=== PATIENT | male | born 1970 | race African-American/Black ===

== ENCOUNTER 2016-11-28 03:12 | Inpatient (IN) | payer MEDICAID, OTHER ==
[~2016-11-28] VITALS: Ht 180.3 cm; Wt 74.5 kg
[~2016-11-28 03:12] MED LIST: AMLO-511; NIFE10CA PO; NORCO; VICOT
[2016-11-28] MEDS ORDERED: LORazepam 2 MG/ML VIAL IM ONE ×2 (03:30→04:45)
[2016-11-28] MEDS ORDERED: DiphenhydrAMINE HCL 50 MG/ML VIAL IM ONE ×2 (03:30→04:45)
[2016-11-28] MEDS ORDERED: HALOPERIDOL LACTATE 5 MG/ML VIAL IM ONE ×2 (03:30→04:45)
[2016-11-28 04:26] LABS: BASOPHILS # (AUTO) 0.05 K/uL (0.00-0.20); BASOPHILS % (AUTO) 0.8 % (0.0-2.0); EOSINOPHILS # (AUTO) 0.05 K/uL (0.00-0.70); EOSINOPHILS % (AUTO) 0.81 % (1.0-6.0); HEMATOCRIT 36.7 % (41-53); HEMOGLOBIN 12.3 g/dL (13.5-17.5); LYMPHOCYTES # (AUTO) 2.5 K/uL (1.0-4.8); LYMPHOCYTES % (AUTO) 38.1 % (22.0-44.0); MEAN CORPUSCULAR HEMOGLOBIN 30.7 pg (26.0-34.0); MEAN CORPUSCULAR HGB CONC 33.6 G/dL (31.0-37.0); MEAN CORPUSCULAR VOLUME 91 fL (80-100); MONOCYTES # (AUTO) 0.7 K/uL (0.1-1.0); MONOCYTES % (AUTO) 11.1 % (2.0-9.0); NEUTROPHILS # (AUTO) 3.2 K/uL (1.8-7.7); NEUTROPHILS % (AUTO) 49.2 % (40.0-70.0); PLATELET COUNT (AUTO) 346 K/uL (150-450); RED BLOOD CELL COUNT(AUTO) 4.01 MIL/uL (4.50-5.90); RED CELL DISTRIBUTION WIDTH 16.1 % (11.5-14.5); WHITE BLOOD COUNT (AUTO) 6.6 K/uL (4.5-11.0)
[2016-11-28 04:33] LABS: ANION GAP 13 mmol/L (8-16); CALCIUM, TOTAL 8.5 mg/dL (8.8-10.5); CARBON DIOXIDE 24 mmol/L (22-29); CHLORIDE 107 mmol/L (98-107); CREATININE 0.98 mg/dL (0.60-1.30); GLOMERULAR FILTR. RATE CALC > 60 mL/min (>60); POTASSIUM 3.8 mmol/L (3.5-5.1); SODIUM SERUM 144 mmol/L (136-145); UREA NITROGEN, BLOOD 22 mg/dL (7-18)
[2016-11-28 04:39] LABS: ALANINE AMINOTRANSFERASE 35 U/L (12-78); ALBUMIN 3.5 g/dL (3.4-5.0); ASPARTATE AMINOTRANSFERASE 35 U/L (15-37); BILIRUBIN,TOTAL 0.1 mg/dL (0.1-1.0); TOTAL PROTEIN, SERUM 7.7 g/dL (6.4-8.2)
[2016-11-28] MEDS ORDERED: OLANZapine 5 MG RAPDIS TABLET PO PRN (05:30)
[2016-11-28] MEDS ORDERED: ZOLPIDEM TARTRATE 10 MG TABLET PO PRN (05:30)
[2016-11-28] MEDS ORDERED: LORazepam 2 MG TABLET PO PRN (05:30)
[2016-11-28 05:46] LABS: APPEARANCE,URINE CLEAR (CLEAR); GLUCOSE, URINE (UA) NEGATIVE (NEGATIVE); KETONES,URINE NEGATIVE (NEGATIVE); LEUKOCYTE ESTERASE ,URINE SMALL (NEGATIVE); OCCULT BLOOD,URINE NEGATIVE (NEGATIVE); PH,URINE 5.5 (5.0-8.0); PROTEIN,URINE NEGATIVE (NEGATIVE)
[2016-11-28 05:48] LABS: ADD UA MICROSCOPIC YES
[2016-11-28 06:01] LABS: RBC,URINE 0-2 /HPF (0-2); SQUAMOUS EPITHELIAL CELL,UR Few /LPF (None Seen)
[2016-11-28 10:44] VITALS: BP 150/91
[2016-11-28] MEDS ORDERED: AMLO-512 PO (10:54)
[2016-11-28] MEDS ORDERED: INFLUENZA VIRUS VACCINE QVS 2016-17 (3YR+)/PF 60 MCG/0.5 ML SYRINGE IM ONE (11:00)
[2016-11-28] MEDS ORDERED: GuaiFENesin/D-METHORPHAN [SUGAR-FREE] 200-20MG/10 ML SYRUP UDCUP PO PRN (11:45)
[2016-11-28] MEDS ORDERED: PROMETHAZINE HCL 25 MG TABLET PO PRN (11:45)
[2016-11-28] MEDS ORDERED: MAG HYDROX/AL HYDROX/SIMETH ES 30 ML SUSPENSION UDCUP PO PRN (11:45)
[2016-11-28] MEDS ORDERED: TUBERCULIN, PURIFIED PROTEIN DERIVATIVE 5 TU/0.1 ML SYG ID ONE (11:45)
[2016-11-28] MEDS ORDERED: LOPERAMIDE HCL 2 MG CAPSULE PO PRN (11:45)
[2016-11-28] MEDS ORDERED: HydrOXYzine PAMOATE 50 MG CAPSULE PO PRN (11:45)
[2016-11-28] MEDS ORDERED: ACETAMINOPHEN 325 MG TABLET PO PRN (11:45)
[2016-11-28] MEDS ORDERED: MAGNESIUM HYDROXIDE SUSPENSION 30 ML UDCUP PO PRN (11:45)
[2016-11-28 12:30] VITALS: BP 126/88
[2016-11-28] MEDS ORDERED: DIAZEPAM 10 MG TABLET PO PRN (12:30)
[2016-11-28 13:30] VITALS: BP 132/71
[2016-11-28] MEDS ORDERED: QUEtiapine FUMARATE 100 MG TABLET PO PRN (14:15)
[2016-11-28 15:14] VITALS: BP 124/65
[2016-11-28 16:00] VITALS: BP 145/97
[2016-11-28 16:46] VITALS: BP 145/97
[2016-11-28] MEDS: THIAMINE HCL 100 MG TABLET PO SCH (17:00)
[2016-11-28] MEDS: DIVALPROEX SODIUM 500 MG ER TABLET PO SCH (20:08)
[2016-11-28] MEDS ORDERED: QUEtiapine FUMARATE 200 MG TABLET PO SCH (21:00)
[2016-11-28] MEDS ORDERED: OLANZapine 5 MG RAPDIS TABLET PO SCH (21:00)
[2016-11-29] VITALS (7 sets, daily range): BP systolic 122–147; BP diastolic 68–106
[2016-11-29] MEDS ORDERED: DIAZEPAM 10 MG TABLET PO PRN (07:00)
[2016-11-29] MEDS ORDERED: CloNIDine HCL 0.1 MG TABLET PO PRN (08:45)
[2016-11-29] MEDS: FOLIC ACID 1 MG TABLET PO SCH (09:00)
[2016-11-29] MEDS: NALTREXONE HCL 50 MG TABLET PO SCH (09:00)
[2016-11-29] MEDS: THIAMINE HCL 100 MG TABLET PO SCH ×2 (09:00→16:52)
[2016-11-29] MEDS: DIAZEPAM 10 MG TABLET PO SCH ×4 (09:00→20:45)
[2016-11-29] MEDS: MULTIVITAMINS WITH MINERALS, THERAPEUTIC TABLET PO SCH (09:58)
[2016-11-29] MEDS: AmLODIPine BESYLATE 10 MG TABLET PO SCH (09:58)
[2016-11-29] MEDS: QUEtiapine FUMARATE 300 MG TABLET PO SCH (20:46)
[2016-11-29] MEDS: DIVALPROEX SODIUM 500 MG ER TABLET PO SCH (20:46)
[2016-11-29] MEDS ORDERED: QUEtiapine FUMARATE 200 MG TABLET PO SCH (21:00)
[2016-11-30 01:12] VITALS: BP 122/78
[2016-11-30 06:06] VITALS: BP 122/78
[2016-11-30] MEDS: NALTREXONE HCL 50 MG TABLET PO SCH (09:00)
[2016-11-30] MEDS: THIAMINE HCL 100 MG TABLET PO SCH ×2 (09:59→16:43)
[2016-11-30] MEDS: MULTIVITAMINS WITH MINERALS, THERAPEUTIC TABLET PO SCH (09:59)
[2016-11-30] MEDS: DIAZEPAM 10 MG TABLET PO SCH ×4 (09:59→20:40)
[2016-11-30] MEDS: FOLIC ACID 1 MG TABLET PO SCH (09:59)
[2016-11-30] MEDS: AmLODIPine BESYLATE 10 MG TABLET PO SCH (09:59)
[2016-11-30 11:00] VITALS: BP 154/99
[2016-11-30] MEDS ORDERED: NALT50 PO (13:51)
[2016-11-30] MEDS ORDERED: DIVA500T52 PO (13:51)
[2016-11-30] MEDS ORDERED: QUET300T18 PO (13:51)
[2016-11-30 16:18] VITALS: BP 141/89
[2016-11-30] MEDS: QUEtiapine FUMARATE 300 MG TABLET PO SCH (20:39)
[2016-11-30] MEDS: DIVALPROEX SODIUM 500 MG ER TABLET PO SCH (20:39)
[2016-12-01 06:54] VITALS: BP 135/75
[2016-12-01 06:55] VITALS: BP 135/75
[2016-12-01] MEDS ORDERED: DIAZEPAM 5 MG TABLET PO PRN (07:00)
[2016-12-01 08:13] VITALS: BP 147/91
[2016-12-01] MEDS: NALTREXONE HCL 50 MG TABLET PO SCH (08:34)
[2016-12-01] MEDS: MULTIVITAMINS WITH MINERALS, THERAPEUTIC TABLET PO SCH (08:34)
[2016-12-01] MEDS: AmLODIPine BESYLATE 10 MG TABLET PO SCH (08:34)
[2016-12-01] MEDS: THIAMINE HCL 100 MG TABLET PO SCH (08:34)
[2016-12-01] MEDS: FOLIC ACID 1 MG TABLET PO SCH (08:34)
[2016-12-01] MEDS ORDERED: DIAZEPAM 5 MG TABLET PO SCH (09:00)
[2016-12-02] MEDS ORDERED: DIAZEPAM 5 MG TABLET PO PRN (07:00)
== END 2016-12-01 08:40 | disposition home or self-care (01) | DRG 750 ==
LOC: EMS 03:13 → B3A 08:17
PROVIDERS: ADMIT Psychiatry & Neurology Psychiatry; ATTEND Psychiatry & Neurology Psychiatry
PROC: GZ51ZZZ Individual Psychotherapy, Behavioral (ICD-10-PCS; principal; 2016-11-28)
DX: F20.0 Paranoid schizophrenia (principal); N39.0 Urinary tract infection, site not specified; I10 Essential (primary) hypertension; D64.9 Anemia, unspecified; F12.90 Cannabis use, unspecified, uncomplicated; F17.210 Nicotine dependence, cigarettes, uncomplicated; R45.850 Homicidal ideations; F14.90 Cocaine use, unspecified, uncomplicated; Z91.19 Patient's noncompliance with other medical treatment and regimen; Z78.1 Physical restraint status; Z79.899 Other long term (current) drug therapy; Z79.1 Long term (current) use of non-steroidal anti-inflammatories (NSAID); Z87.81 Personal history of (healed) traumatic fracture; Z72.89 Other problems related to lifestyle; Z28.21 Immunization not carried out because of patient refusal
CPT/HCPCS: 87086; 96372; 99285; G0480; J1200; J1630; J2060

== ENCOUNTER 2017-05-21 23:59 | Emergency (ER) | payer MEDICAID ==
[~2017-05-21] VITALS: Ht 188 cm; Wt 86.4 kg
[~2017-05-21 23:59] MED LIST changes: -AMLO-511; +DIVA500T52 PO; +NALT50 PO; -NIFE10CA PO; -NORCO; +QUET300T18 PO; -VICOT
[2017-05-22 03:50] VITALS: BP 119/70
== END 2017-05-22 04:51 | disposition left against medical advice (07) ==
LOC: EMS 05-22 00:01
DX: F10.129 Alcohol abuse with intoxication, unspecified (principal); F17.210 Nicotine dependence, cigarettes, uncomplicated; F12.90 Cannabis use, unspecified, uncomplicated; F14.90 Cocaine use, unspecified, uncomplicated
CPT/HCPCS: 99283

== ENCOUNTER 2017-06-05 10:02 | Emergency (ER) | payer MEDICAID, OTHER ==
[2017-06-05] MEDS ORDERED: QUEtiapine FUMARATE 100 MG TABLET PO ONE (10:15)
[2017-06-05] MEDS ORDERED: QUEtiapine FUMARATE 100 MG TABLET ONE (10:57)
[2017-06-05 11:39] LABS: HEMATOCRIT 38.9 % (41-53); LYMPHOCYTES % (AUTO) 20.6 % (22.0-44.0); MEAN CORPUSCULAR HEMOGLOBIN 31.2 pg (26.0-34.0); MEAN CORPUSCULAR HGB CONC 33.4 G/dL (31.0-37.0); MEAN CORPUSCULAR VOLUME 94 fL (80-100); NEUTROPHILS % (AUTO) 68.4 % (40.0-70.0); PLATELET COUNT (AUTO) 391 K/uL (150-450); RED BLOOD CELL COUNT(AUTO) 4.16 MIL/uL (4.50-5.90); RED CELL DISTRIBUTION WIDTH 15.2 % (11.5-14.5); WHITE BLOOD COUNT (AUTO) 7.9 K/uL (4.5-11.0)
[2017-06-05 11:40] LABS: BASOPHILS # (AUTO) 0.03 K/uL (0.00-0.20); BASOPHILS % (AUTO) 0.4 % (0.0-2.0); EOSINOPHILS # (AUTO) 0.07 K/uL (0.00-0.70); EOSINOPHILS % (AUTO) 0.88 % (1.0-6.0); LYMPHOCYTES # (AUTO) 1.6 K/uL (1.0-4.8); MONOCYTES # (AUTO) 0.8 K/uL (0.1-1.0); MONOCYTES % (AUTO) 9.8 % (2.0-9.0); NEUTROPHILS # (AUTO) 5.4 K/uL (1.8-7.7)
[2017-06-05 11:47] LABS: ALANINE AMINOTRANSFERASE 38 U/L (12-78); ALBUMIN 4.2 g/dL (3.4-5.0); ANION GAP 13 mmol/L (8-16); ASPARTATE AMINOTRANSFERASE 81 U/L (15-37); BILIRUBIN,TOTAL 1.1 mg/dL (0.1-1.0); CALCIUM, TOTAL 9.2 mg/dL (8.8-10.5); CARBON DIOXIDE 24 mmol/L (22-29); CHLORIDE 104 mmol/L (98-107); GLOMERULAR FILTR. RATE CALC > 60 mL/min (>60); POTASSIUM 3.8 mmol/L (3.5-5.1); SODIUM SERUM 141 mmol/L (136-145); TOTAL PROTEIN, SERUM 7.7 g/dL (6.4-8.2); UREA NITROGEN, BLOOD 18 mg/dL (7-18)
[2017-06-05 12:18] VITALS: BP 150/103
== END 2017-06-05 12:41 | disposition home or self-care (01) ==
LOC: EMS 10:02
DX: F25.9 Schizoaffective disorder, unspecified (principal); F17.210 Nicotine dependence, cigarettes, uncomplicated; F12.90 Cannabis use, unspecified, uncomplicated; F14.90 Cocaine use, unspecified, uncomplicated
CPT/HCPCS: 99284